=== PATIENT | female | born 1995 ===

== ENCOUNTER 2024-07-21 08:30 | Outpatient (AMB) | payer MEDICAID, SELFPAY ==
--- NOTE | 2024-07-21 08:48 | AMB.OBINITIA ---
Vital Signs 07/21/24 08:49 Height 1.65 m Height Method Stated Weight 68.039 kg Weight Measurement Method Standing Scale BMI 25.0 BP 82/67 L Blood Pressure Source Automatic Cuff Blood Pressure Location Left Upper Arm Position Sitting Respiration 16 Pulse 77 Pulse Source Monitor Temp 97 F Temp Source Oral Pulse Oximetry (%) 99 Oxygen Delivery Method Room Air Allergies/Home Meds Allergies & Medications Allergies No Known Allergies Allergy (Verified 07/28/24 11:45) Medication Reconciliation No Known Home Medications 07/21/24 [History Confirmed 07/28/24] Intake Visit Data Collection New Patient or Established: New Patient (never been to [facility]) Reason for Visit:: New OB Seen by Clinical Staff ONLY (RN/MA): No Professor Of Social Work Required: No Do You Feel Safe at Home: Yes Authorities Contacted: N/A PCP or OBGYN visit in last 3 months: No Hx Now: Yes Are you currently on any form of Control: No Last menstrual period: 05/07/24 Pain Present Currently: No Pain Scale Used: Gilliland-Manjarrez/Numerical Pain scale:: 0 Smoking Status Smoking Status: Never smoker Questionnaires Covid-19 Vaccine Questionnaire Has patient been vacinated for Covid-19 Have you been vacinated for Covid-19: Yes PHQ-9 PHQ-2 Over the last 2 weeks, how often have you been bothered by any of the following problems? 1. Little interest or pleasure in doing things: not at all 2. Feeling down, depressed, or hopeless: not at all Total score: 0 PHQ-9 3. Trouble falling or staying asleep, or sleeping too much: Not at all 4. Feeling tired or having little energy: Not at all 5. Poor appetite or overeating: Not at all 6. Feeling bad about yourself - or that you are a failure or have let yourself or your family down: Not at all 7. Trouble concentrating on things, such as reading the newspaper or watching television: Not at all 8. Moving or speaking so slowly that other people could have noticed? - Or the opposite - being so fidgety or restless that you have been moving around a lot more than usual: not at all 9. Thoughts that you would be better off or of hurting yourself in some way: Not at all Total score: 0 If you checked off any problems, how difficult have these problems made it for you to do your work, take care of things at home, or get along with other people?: not difficult at all Source: Developed by Drs. Ricardo De La Garza, Wanda Sanches, Shane Antonio and colleagues, with an educational marge from [employer]. Depression screen completed yes Social History Living Situation History Marital Status: Lives With: Family Housing: House Tobacco History Smoking Status: Never smoker Alcohol History Alcohol Intake: Never Domestic Abuse History Do You Feel Safe at Home: Yes Past Medical History Past Medical History Have you ever been diagnosed with any of the following: History of Present Illness HPI Narrative Patient presents for her first visit for her fourth . She has a history of miscarriage in 2017 and a successful delivery in 2020. Patient visited [facility] on Saturday due to light bleeding and was diagnosed with a subchorionic hemorrhage, but was informed that the baby is fine. Her last menstrual period was on June 06. Patient denies any other medical issues or current medications, although she was sick two weeks ago and her voice is barely coming back. She has a history of two previous sections, with a low transverse incision from her last delivery. Patient is concerned about the possibility of another and inquired about the possibility of a vaginal after two C-sections. Patient expressed difficulty in finding a doctor after moving from [place]. The clinician plans to pull all previous lab results and conduct an ultrasound to confirm the 's progress. Patient had initial blood work done at [facility] and that includes negative toxicology screen hCG of 235 on 07/03/2024 hepatitis B negative hepatitis C negative RPR nonreactive rubella immune blood group O+ with antibody screen negative HIV negative gonorrhea and Chlamydia negative platelet counts were 283,000 prior to that patient had 1 toxicology screen where she had a positive for carboxy THC on her new swab vaginal swab she was positive for Elizabeth albicans OB Initial Visit Menstrual History Menstrual reliability: definite Flow: normal Menstrual regularity: regular Monthly: Yes Age at menarche: 15 On control pills at conception: No OB History : 4 Para: 2 Hx Total # of Abortions (Spontaneous & Elective): 1 # of Living Children: 2 Delivery History 1st : Child's name: [facility] date: 07/05/16 sex: female Delivery type: weight (oz): 3175.147 g Delivery complications: BREECH History of depression before or after : No 2nd : Child's name: LYUBOV date: 03/21/21 sex: female Delivery type: weight (lbs): 3175.147 g Delivery complications: NONE History of depression before or after : No Infection History & Risk Evaluation History of STDs: chlamydia (AROUND TEN YEARS AGO ) HIV risk evaluation: low risk Hepatitis B risk evaluation: low risk Patient or partner has history of Genital Herpes: No Varicella/chicken pox status: immunized Genetic Screening & History Genetic Screening/Teratology Counseling - Includes patient, baby's father, or anyone in either family with: 1. Patient's age 35 years or older as of estimated date of delivery: No 2. Thalassemia (Jamaican, Slovak, Mediterranean, or Background); MCV less than 80: No 3. Neural Tube Defect (Meningomyelocele, Spina Bifida, or Anencephaly): No 4. Congenital Heart Defect: No 5. Down Syndrome: No 6. Mateus-Sachs (Ashkenazi Buddhism, Cajun, Georgian Finnish): No 7. Landry Disease (Ashkenazi Buddhism): No 8. Familial Dysautonomia (Ashkenazi Buddhism): No 9. Sickle Cell Disease or Trait (): No 10. Hemophilia or other blood disorders: No 11. Muscular Dystrophy: No 12. Cystic Fibrosis: No 13. [place]'s Chorea: No 14. Mental Retardation/Autism: No 15. Other inherited genetic or chromosomal disorder: No 16. Maternal Metabolic Disorder (EG,TYPE 1 Diabetes, PKU): No 17. Patient or baby's father had a child with defects not listed above: No 18. Recurrent loss or a stillbirth: No 19. Medications (including supplements, vitamins, herbs or otc drugs)/illicit/recreational drugs/alcohol since last menstrual period: No 20. Any other: No Infection History 1. Live with someone with TB or exposed to TB: No 2. Rash or viral illness since last menstrual period: No 3. Hepatitis B,C: No 4. History of STD: chlamydia Other (see comments) Source: [employer] Review of Systems Review of Systems Systems Reviewed: All systems reviewed, normal except as documented Exam General Limitations: no limitations General Appearance: alert, in no apparent distress, comfortable, cooperative, healthy appearing, well developed and well groomed Head Head exam: atraumatic, normocephalic and normal inspection Neck Neck exam: Present normal inspection, full ROM and trachea midline Chest Chest inspection: Present normal inspection and symmetric chest wall rise Abdominal Abdominal exam: Present soft and normal bowel sounds Extremities Extremities exam: Present normal inspection and full ROM Back Back exam: Present normal inspection and full ROM Psych Psychiatric exam: Present normal affect and normal mood Skin Skin exam: Present warm, dry, intact and normal color Assessment & Plan Diagnosis / Problem List (1) Maternal care for unspecified type scar from previous delivery: Status: Acute Plan: Problem-Based Assessment and Plan , currently at approximately 9 weeks gestation based on LMP of June 06, 2024. NAT calculated as March 13, 2025. Patient had a recent episode of vaginal bleeding, diagnosed as subchorionic hemorrhage at [facility]. Current heart rate is 170 bpm. Patient has a history of two previous sections. - Obtain and review labs and ultrasound results from [facility] and [facility] - Schedule formal ultrasound in two weeks - Order genetic tests for Down syndrome and other conditions once is confirmed to be over 9 weeks - Schedule 20-week ultrasound to check placenta position in relation to previous scar - Discuss and plan for repeat section, as vaginal after two C-sections is generally not recommended at this facility - Follow-up appointment in two weeks Medical Decision Making Roma Hernandez is a woman presenting for her first obstetric visit with a history of a recent subchorionic hemorrhage. The patient's recent bleeding episode and emergency department visit at [facility] resulted in a diagnosis of subchorionic hemorrhage, with confirmation that the fetus is viable. An in-office heart rate check revealed a rate of 170 bpm, which is within normal limits for early . Based on the last menstrual period of June 06 and ultrasound measurements, the estimated due date is calculated as March 13. The patient's obstetric history, including a previous miscarriage and a low transverse section, was considered in the management plan. Given the patient's history of two prior sections, the risks and benefits of attempting a vaginal after () were discussed, with the recommendation to avoid due to increased risks. The decision-making process included consideration of the patient's surgical history, current status, and standard obstetric care guidelines. Pt Education Educated the patient on the importance of care, including taking vitamins with folic acid, iron, and calcium. Emphasized avoiding alcohol, smoking, and certain medications. Discussed common symptoms like nausea and fatigue, advising small, frequent meals and adequate hydration. Explained the need for regular check-ups and recommended safe physical activities. Instructed on signs of complications, such as severe cramping or bleeding, and when to seek immediate medical attention. Highlighted the importance of a balanced diet and avoiding high-risk foods. Encouraged open communication about any concerns or questions. Encouraged keeping up with all appointments and tests. (2) Supervision of high risk , unspecified, first trimester: Status: Acute Office Procedures OB Clinic LOC & Office Proc's Nursing/Assessment Patient Status: Initial/New Patient OB Clinic Nursing Assessment: BP Monitoring, Medication Reconciliation, Update PMH in EMR and Vital Signs OB Clinic Coordination of Care: Consent,records obtained, informed consent, Education Simp Pt/Fam, Lab and Imaging orders and Staff clarify orders New Patient Charge New Patient Point Assignment: [id number] New Patient Point Charge: RAILROAD WORKER Level 3 ([id number])
[2024-07-21 08:49] VITALS: BP 82/67; PULSE 77; RESP 16; TEMP 36.1; O2SAT 99; BMI 25.0
== END 2024-07-21 09:08 | disposition home or self-care (01) ==
LOC: HODSOBC 08:30
PROVIDERS: PCP Physician Assistant Medical; Referring Provider Physician Assistant Medical; Supervising Provider Obstetrics & Gynecology; Visit Provider Obstetrics & Gynecology
DX: O09.91 Supervision of high risk pregnancy, unspecified, first trimester (principal); O34.219 Maternal care for unspecified type scar from previous cesarean delivery; Z3A.09 9 weeks gestation of pregnancy
CPT/HCPCS: 99202; 99203; G0463

== ENCOUNTER 2024-07-28 11:36 | Outpatient (AMB) | payer MEDICAID, SELFPAY ==
[2024-07-28 11:44] VITALS: BP 116/80; PULSE 75; RESP 16; TEMP 36.8; O2SAT 96; BMI 24.6
--- NOTE | 2024-07-28 11:44 | AMB.OBVISIT ---
Vital Signs 07/28/24 11:44 Height 1.65 m Height Method Stated Weight 67.132 kg Weight Measurement Method Standing Scale BMI 24.6 BP 116/80 Blood Pressure Source Automatic Cuff Blood Pressure Location Left Upper Arm Position Sitting Respiration 16 Pulse 75 Pulse Source Monitor Temp 98.2 F Temp Source Oral Pulse Oximetry (%) 96 Oxygen Delivery Method Room Air Allergies/Home Meds Allergies & Medications Allergies No Known Allergies Allergy (Verified 08/05/24 10:03) Medication Reconciliation No Known Home Medications 07/21/24 [History Confirmed 08/05/24] Intake Visit Data Collection New Patient or Established: Established Patient (seen at [facility] within 3 years) Reason for Visit:: PINK/BROWN DISCHARGE CONCERNS Seen by Clinical Staff ONLY (RN/MA): No Superintendent Construction Required: No Do You Feel Safe at Home: Yes Authorities Contacted: N/A PCP or OBGYN visit in last 3 months: Yes Date of Last PCP or OBGYN visit: 07/21/24 Hx Now: Yes Are you currently on any form of Control: No Last menstrual period: 05/07/24 Pain Present Currently: No Pain Scale Used: Gilliland-Manjarrez/Numerical Pain scale:: 0 Smoking Status Smoking Status: Never smoker Questionnaires Covid-19 Vaccine Questionnaire Has patient been vacinated for Covid-19 Have you been vacinated for Covid-19: Yes PHQ-9 PHQ-2 Over the last 2 weeks, how often have you been bothered by any of the following problems? 1. Little interest or pleasure in doing things: not at all 2. Feeling down, depressed, or hopeless: not at all Total score: 0 PHQ-9 3. Trouble falling or staying asleep, or sleeping too much: Not at all 4. Feeling tired or having little energy: Not at all 5. Poor appetite or overeating: Not at all 6. Feeling bad about yourself - or that you are a failure or have let yourself or your family down: Not at all 7. Trouble concentrating on things, such as reading the newspaper or watching television: Not at all 8. Moving or speaking so slowly that other people could have noticed? - Or the opposite - being so fidgety or restless that you have been moving around a lot more than usual: not at all 9. Thoughts that you would be better off or of hurting yourself in some way: Not at all Total score: 0 Source: Developed by Drs. Ricardo De La Garza, aWnda Sanches, Shane Antonio and colleagues, with an educational marge from [employer]. Depression screen completed yes Social History Living Situation History Lives With: Family Housing: House Tobacco History Smoking Status: Never smoker Second Hand Smoke Exposure: No Alcohol History Alcohol Intake: Never Domestic Abuse History Do You Feel Safe at Home: Yes Past Medical History Past Medical History Have you ever been diagnosed with any of the following: History of Present Illness HPI Narrative HPI: Roma Hernandez is a 3, para 2 woman with a history of two prior sections and one miscarriage in 2018, presenting with ongoing concerns about vaginal discharge and anxiety related to her current . Her last menstrual period was on June 06, 2024. She was seen previously on 07/21/24 after presenting to [facility] with light vaginal bleeding, where she was diagnosed with a subchorionic hemorrhage. She was reassured that the baby was doing well at that time. At her follow-up on 07/28/24, the patient reports experiencing intermittent vaginal discharge every other day since her last visit, which she describes as old blood. She attributes this to the prior subchorionic hemorrhage. The recurrent nature and appearance of the discharge continue to cause her concern, especially given that her first two pregnancies were uncomplicated. She is experiencing increased anxiety during this . The patient recently moved from [place] and has had difficulty establishing care. She is currently not working, allowing her to comply with any necessary recommendations or precautions. She expressed interest in pursuing a vaginal after two deliveries (TOLAC) and inquired about its feasibility, noting her previous low transverse uterine incisions. She denies any current medical conditions or medication use, although she reports having been ill two weeks ago with persistent hoarseness. Initial labs drawn at [facility] included an hCG of 235 on 07/03/24, negative toxicology screen, and normal infectious disease screening: hepatitis B and C negative, RPR nonreactive, rubella immune, blood group O+ with negative antibody screen, HIV negative, gonorrhea and chlamydia negative. Platelet count was 283,000. A prior toxicology screen showed positivity for carboxy-THC. A recent vaginal swab was positive for Elizabeth albicans. Ultrasound is planned to confirm progress, and previous labs will be reviewed. Review of Systems Review of Systems Systems Reviewed: All systems reviewed, normal except as documented Visit NAT Calculator Estimated Delivery Date Method Current WG Current Estimate 03/13/25 Ultrasound #1 11w 6d Other Estimates 03/13/25 LMP (Certain) 11w 6d Initial Weight: Not Recorded Date <del>?</del> EGA Weight Edema CTX Effacement BP Fundal ht Pres Dilation Effacement Station Visit Note Alb Glu FHR Mov 08/05/24 <del>?</del> 8w 4d 67.358 kg 111/76 , Bleeding resolved. Sono reviewed. [facility] referral. Labs to be done. 4w. 175 Exam General Limitations: no limitations General Appearance: alert, in no apparent distress, comfortable, cooperative, healthy appearing, well developed and well groomed Head Head exam: atraumatic, normocephalic and normal inspection Neck Neck exam: Present normal inspection, full ROM and trachea midline Chest Chest inspection: Present normal inspection and symmetric chest wall rise Abdominal Abdominal exam: Present soft and normal bowel sounds Extremities Extremities exam: Present normal inspection and full ROM Back Back exam: Present normal inspection and full ROM Psych Psychiatric exam: Present normal affect and normal mood Skin Skin exam: Present warm, dry, intact and normal color Assessment & Plan Diagnosis / Problem List (1) Supervision of high risk , unspecified, first trimester: Status: Acute Plan: Patient expresses anxiety related to the current complications, noting that her first two pregnancies were uncomplicated. The subchorionic hemorrhage and associated bleeding have contributed to increased worry. - Reassurance provided about well-being based on visible heartbeat - Education on the typical course and management of subchorionic hemorrhage - Close follow-up to address ongoing concerns (2) Maternal care for unspecified type scar from previous delivery: Status: Acute (3) Subchorionic hemorrhage in first trimester: Status: Acute Plan: Patient presents with recurrent vaginal discharge, described as old blood, occurring every other day. A previous subchorionic bleed was identified last week. Current abdominal ultrasound reveals a visible blood clot, likely representing a retroplacental or intraplacental hemorrhage. The fetus has a visible heartbeat. The clinician notes that subchorionic hemorrhages can bleed multiple times and may resolve spontaneously, but caution is warranted. - Bed rest for 7 days - Stat transvaginal ultrasound ordered for detailed evaluation - Follow-up appointment scheduled in 7 days - Patient education provided on the nature of subchorionic hemorrhage and the importance of rest for healing - Continued monitoring of heartbeat and any increased bleeding Additional Plan Follow Up: 1 Week Office Procedures OB Clinic LOC & Office Proc's Nursing/Assessment Patient Status: Established Patient OB Clinic Nursing Assessment: Medication Reconciliation, Update PMH in EMR and Vital Signs OB Clinic Coordination of Care: Complex Care and Chronic Disease 1-5, Consent,records obtained, informed consent, Education Simp Pt/Fam, Lab and Imaging orders and Staff clarify orders Established Patient Charge Established Patient Point Assignment: 100 Established Patient Point Charge: EP Level 3 (80-115) Bedside Ultrasounds US Transabdominal <14 weeks at bedside: Yes
== END 2024-07-28 12:09 | disposition home or self-care (01) ==
LOC: HODSOBC 11:36
PROVIDERS: PCP Obstetrics & Gynecology; Referring Provider Obstetrics & Gynecology; Supervising Provider Obstetrics & Gynecology; Visit Provider Obstetrics & Gynecology
DX: O09.291 Supervision of pregnancy with other poor reproductive or obstetric history, first trimester (principal); O34.219 Maternal care for unspecified type scar from previous cesarean delivery; O09.891 Supervision of other high risk pregnancies, first trimester; O20.8 Other hemorrhage in early pregnancy; Z3A.00 Weeks of gestation of pregnancy not specified
CPT/HCPCS: 76801; 99213; G0463

== ENCOUNTER 2024-08-05 09:37 | Outpatient (AMB) | payer MEDICAID, SELFPAY ==
[2024-08-05 10:02] VITALS: BP 111/76; PULSE 81; RESP 16; TEMP 36.6; O2SAT 98; BMI 24.7
--- NOTE | 2024-08-05 10:02 | AMB.OBVISIT ---
Vital Signs 08/05/24 10:02 Height 1.65 m Height Method Stated Weight 67.358 kg Weight Measurement Method Standing Scale BMI 24.7 BP 111/76 Blood Pressure Source Automatic Cuff Blood Pressure Location Left Upper Arm Position Sitting Respiration 16 Pulse 81 Pulse Source Monitor Temp 98 F Temp Source Oral Pulse Oximetry (%) 98 Oxygen Delivery Method Room Air Allergies/Home Meds Allergies & Medications Allergies No Known Allergies Allergy (Verified 08/05/24 10:03) Medication Reconciliation No Known Home Medications 07/21/24 [History Confirmed 08/05/24] Intake Visit Data Collection New Patient or Established: Established Patient (seen at [facility] within 3 years) Reason for Visit:: CARE Seen by Clinical Staff ONLY (RN/MA): No Showroom Salesperson Required: No Do You Feel Safe at Home: Yes Authorities Contacted: N/A PCP or OBGYN visit in last 3 months: Yes Hx Now: Yes Are you currently on any form of Control: No Pain Present Currently: No Pain Scale Used: Gilliland-Manjarrez/Numerical Pain scale:: 0 Smoking Status Smoking Status: Never smoker Questionnaires Covid-19 Vaccine Questionnaire Has patient been vacinated for Covid-19 Have you been vacinated for Covid-19: Yes PHQ-9 PHQ-2 Over the last 2 weeks, how often have you been bothered by any of the following problems? 1. Little interest or pleasure in doing things: not at all 2. Feeling down, depressed, or hopeless: not at all Total score: 0 PHQ-9 3. Trouble falling or staying asleep, or sleeping too much: Not at all 4. Feeling tired or having little energy: Not at all 5. Poor appetite or overeating: Not at all 6. Feeling bad about yourself - or that you are a failure or have let yourself or your family down: Not at all 7. Trouble concentrating on things, such as reading the newspaper or watching television: Not at all 8. Moving or speaking so slowly that other people could have noticed? - Or the opposite - being so fidgety or restless that you have been moving around a lot more than usual: not at all 9. Thoughts that you would be better off or of hurting yourself in some way: Not at all Total score: 0 Source: Developed by Drs. Ricardo L. Wanda De La Garza Kurt Kroenke and colleagues, with an educational marge from [employer]. Depression screen completed yes Social History Living Situation History Lives With: Family Housing: House Tobacco History Smoking Status: Never smoker Second Hand Smoke Exposure: No Alcohol History Alcohol Intake: Never Domestic Abuse History Do You Feel Safe at Home: Yes Past Medical History Past Medical History Have you ever been diagnosed with any of the following: History of Present Illness HPI Narrative The patient is a woman who previously experienced a subchoronic hemorrhage. She reports that she has not had any bleeding for the past 4 days. The patient is currently 8 weeks and 4 days . She had an ultrasound yesterday which was reported as normal. No CTX/LOF/VB Review of Systems Review of Systems Systems Reviewed: All systems reviewed, normal except as documented Visit OB Visit Log OB Flowsheet Initial Weight: Not Recorded Date <del>?</del> EGA Weight Edema CTX Effacement BP Fundal ht Pres Dilation Effacement Station Visit Note Alb Glu FHR Mov 08/05/24 <del>?</del> 8w 4d 67.358 kg 111/76 , Bleeding resolved. Sono reviewed. M referral. Labs to be done. 4w. 175 NAT Calculator Estimated Delivery Date Method Current WG Current Estimate 03/13/25 Ultrasound #1 8w 6d Other Estimates 03/13/25 LMP (Certain) 8w 6d Exam General Limitations: no limitations General Appearance: alert, in no apparent distress, comfortable, cooperative, healthy appearing, well developed and well groomed Head Head exam: atraumatic, normocephalic and normal inspection Neck Neck exam: Present normal inspection, full ROM and trachea midline Chest Chest inspection: Present normal inspection and symmetric chest wall rise Resp Respiratory exam: Present normal lung sounds bilaterally Card Cardiovascular exam: Present regular rate, normal rhythm and normal heart sounds Abdominal Abdominal exam: Present soft and normal bowel sounds Extremities Extremities exam: Present normal inspection and full ROM Back Back exam: Present normal inspection and full ROM Psych Psychiatric exam: Present normal affect and normal mood Skin Skin exam: Present warm, dry, intact and normal color Assessment & Plan Diagnosis / Problem List (1) Subchorionic hemorrhage in first trimester: Status: Acute (2) Supervision of high risk , unspecified, first trimester: Status: Acute Plan: Patient is currently 8 weeks and 4 days . A previous ultrasound showed a subchorionic hemorrhage, which was expected to resolve within 1-2 weeks. Today's ultrasound shows the hemorrhage is resolving, with the gestational sac now appearing round and without compression. The heart rate is 170 bpm, which is within the normal range of 140-180 bpm for the first trimester. The patient reports no bleeding for the past 4 days, indicating clinical improvement. - Continue following precautions as previously advised - Perform NIPT (Non-Invasive Testing) at 9 weeks gestation (eligible starting Saturday) - Blood draw for NIPT to be done at [facility] - 12-week ultrasound scheduled with [facility] in [place] (appointment to be communicated to patient) - Follow-up with clinician in 2-3 days for NIPT results Office Procedures OB Clinic LOC & Office Proc's Nursing/Assessment Patient Status: Established Patient OB Clinic Nursing Assessment: Medication Reconciliation, Update PMH in EMR and Vital Signs OB Clinic Coordination of Care: Complex Care and Chronic Disease 1-5, Consent,records obtained, informed consent, Education Simp Pt/Fam, Lab and Imaging orders and Results/Orders obtained Established Patient Charge Established Patient Point Assignment: 95 Established Patient Point Charge: EP Level 3 (80-115) Bedside Ultrasounds US Transabdominal >14 weeks at bedside: Yes
== END 2024-08-05 10:08 | disposition home or self-care (01) ==
LOC: HODSOBC 09:37
PROVIDERS: PCP Obstetrics & Gynecology; Referring Provider Obstetrics & Gynecology; Supervising Provider Obstetrics & Gynecology; Visit Provider Obstetrics & Gynecology
DX: O20.8 Other hemorrhage in early pregnancy (principal); Z3A.08 8 weeks gestation of pregnancy
CPT/HCPCS: 76805; 99213; G0463

== ENCOUNTER 2024-09-01 08:43 | Outpatient (AMB) | payer MEDICAID, SELFPAY ==
--- NOTE | 2024-09-01 08:59 | OBCLNT_ITS ---
Vital Signs 09/01/24 09:03 Height 1.65 m Height Method Stated Weight 68.266 kg Weight Measurement Method Standing Scale BMI 25.0 BP 117/72 Blood Pressure Source Automatic Cuff Blood Pressure Location Left Upper Arm Position Sitting Respiration 16 Pulse 74 Pulse Source Monitor Temp 97.5 F Temp Source Oral Pulse Oximetry (%) 98 Oxygen Delivery Method Room Air Allergies/Home Meds Allergies & Medications Allergies No Known Allergies Allergy (Verified 09/01/24 09:04) Medication Reconciliation No Known Home Medications 07/21/24 [History Confirmed 09/01/24] Intake Visit Data Collection New Patient or Established: Established Patient (seen at [facility] within 3 years) Reason for Visit:: - Routine visit at 12 weeks and 3 days gestation - History of subchorionic hemorrhage, now resolved Seen by Clinical Staff ONLY (RN/MA): No Product Marketer Required: No Do You Feel Safe at Home: Yes Authorities Contacted: N/A PCP or OBGYN visit in last 3 months: Yes Hx Now: Yes Are you currently on any form of Control: No Pain Present Currently: No Pain Scale Used: Gilliland-Manjarrez/Numerical Pain scale:: 0 Smoking Status Smoking Status: Never smoker Questionnaires Covid-19 Vaccine Questionnaire Has patient been vacinated for Covid-19 Have you been vacinated for Covid-19: Yes PHQ-9 PHQ-2 Over the last 2 weeks, how often have you been bothered by any of the following problems? 1. Little interest or pleasure in doing things: not at all 2. Feeling down, depressed, or hopeless: not at all Total score: 0 PHQ-9 3. Trouble falling or staying asleep, or sleeping too much: Not at all 4. Feeling tired or having little energy: Not at all 5. Poor appetite or overeating: Not at all 6. Feeling bad about yourself - or that you are a failure or have let yourself or your family down: Not at all 7. Trouble concentrating on things, such as reading the newspaper or watching television: Not at all 8. Moving or speaking so slowly that other people could have noticed? - Or the opposite - being so fidgety or restless that you have been moving around a lot more than usual: not at all 9. Thoughts that you would be better off or of hurting yourself in some way: Not at all Total score: 0 Source: Developed by Drs. Ricardo De La Garza, Wanda Sanches, Shane Antonio and colleagues, with an educational marge from [employer]. Depression screen completed yes Social History Living Situation History Lives With: Family Housing: House Tobacco History Smoking Status: Never smoker Second Hand Smoke Exposure: No Alcohol History Alcohol Intake: Never Domestic Abuse History Do You Feel Safe at Home: Yes Past Medical History Past Medical History Have you ever been diagnosed with any of the following: History of Present Illness HPI Narrative - Roma Hernandez is a 4 para 3 patient at 12 weeks and 3 days gestation presenting for a visit. - History of subchorionic hemorrhage - Bleeding has now resolved - Patient had genetic testing done on August 11 - Initially, labs were returned as not performed due to gestational age being less than 9 weeks - Patient reports returning for a repeat test - Patient states she was informed of the gender (male) - Patient expresses nervousness about her upcoming third - Concerned about potential complications - No current complaints or symptoms reported No contractions/ LOF/VB No CAAL/VC/RUQ/Epig pain Care OB Visit Log OB Flowsheet Initial Weight: Not Recorded Date -?-?-?-?-?-?-?-?-?-?-?-?- EGA Weight Edema CTX Effacement BP Fundal ht Pres Dilation Effacement Station Visit Note Alb Glu FHR Mov 08/05/24 -?-?-?-?-?-?-?-?-?-?-?-?- 8w 4d 67.358 kg 111/76 21, Bleeding resolved. Sono reviewed. [facility] referral. Labs to be done. 4w. 175 09/01/24 -?-?-?-?-?-?-?-?-?-?-?-?- 12w 3d 68.266 kg 117/72 Ismael Hernandez, at 12w3d gestation, presents for routine care. She has a resolved subchorionic hemorrhage and underwent genetic testing on 08/11; initial labs were not processed due to early gestational age but were later repeated. Patient reports gender as male and confirms negative screening for trisomies, CF, and asthma, with a fraction of 21%. She expresses anxiety about her upcoming third delivery due to concern for complications. No current complaints or symptoms are reported. heart rate was auscultated at 160 bpm, within normal range. Plan: Schedule follow-up in [address] Diaz ([facility]) at [facility] Scan and upload genetic lab results into chart Continue routine care and reass urance regarding upcoming delivery Reinforce education on signs of labor and precautions 160 NAT Calculator Estimated Delivery Date Method Current WG Current Estimate 03/13/25 Ultrasound #1 12w 5d Other Estimates 03/13/25 LMP (Certain) 12w 5d Exam General General Appearance: alert, in no apparent distress and healthy appearing Head Head exam: atraumatic Neck Neck exam: Present normal inspection and trachea midline Chest Chest inspection: Present normal inspection and symmetric chest wall rise External exam: Present normal external exam; Absent tenderness Neuro Neurological exam: Present oriented X3 Psych Psychiatric exam: Present normal affect and normal mood Assessment & Plan Diagnosis / Problem List (1) Subchorionic hemorrhage in first trimester: Status: Acute (2) Supervision of high risk , unspecified, first trimester: Status: Acute (3) Maternal care for unspecified type scar from previous delivery: Status: Acute Plan Problem List - , 12 weeks and 3 days gestation - 4, para 3 - Subchorionic hemorrhage Assessment - Intrauterine at 12 weeks and 3 days gestation - 4, para 3 - History of subchorionic hemorrhage, now resolved - heart rate 160 bpm, within normal range for gestational age - Male fetus confirmed by genetic testing - Negative results for ultraisomies, cystic fibrosis, and asthma on maternity genome test - 21% fraction on genetic testing - Status post 2 previous sections Plan - Schedule 4-week follow-up appointment - Refer patient to Dr. Diaz at [facility] office for maternal- medicine evaluation - Collect and scan lab results into patient's chart Educated the patient on labor signs, including regular contractions, lower back pain, and changes in vaginal discharge. Advised avoiding heavy lifting and getting adequate rest. Instructed to contact the office immediately if any signs occur. Discussed the importance of a balanced diet rich in folic acid, iron, and calcium, and provided a list of recommended and to-avoid foods. Emphasized avoiding high-sugar foods to reduce gestational diabetes risk. Encouraged hydration and frequent, small meals for energy.. Office Procedures OB Clinic LOC & Office Proc's Nursing/Assessment Patient Status: Established Patient OB Clinic Nursing Assessment: Medication Reconciliation, Update PMH in EMR and Vital Signs OB Clinic Coordination of Care: Complex Care and Chronic Disease 1-5, Consent,records obtained, informed consent, Education Simp Pt/Fam, Lab and Imaging orders and Staff clarify orders Special Needs: Heart tones Miscellaneous Interventions: Blood/Urine Collection Established Patient Charge Established Patient Point Assignment: 160 Established Patient Point Charge: EP Level 5 (160-above)
[2024-09-01 09:03] VITALS: BP 117/72; PULSE 74; RESP 16; TEMP 36.4; O2SAT 98; BMI 25.0
== END 2024-09-01 09:40 | disposition home or self-care (01) ==
LOC: HODSOBC 08:43
PROVIDERS: PCP Obstetrics & Gynecology; Referring Provider Obstetrics & Gynecology; Supervising Provider Obstetrics & Gynecology; Visit Provider Obstetrics & Gynecology
DX: O09.291 Supervision of pregnancy with other poor reproductive or obstetric history, first trimester (principal); Z3A.12 12 weeks gestation of pregnancy; O09.891 Supervision of other high risk pregnancies, first trimester; O34.219 Maternal care for unspecified type scar from previous cesarean delivery; O20.8 Other hemorrhage in early pregnancy
CPT/HCPCS: 99215; G0463